=== PATIENT | male | born 1965 | race Caucasian/White ===

== ENCOUNTER → 2022-05-23 | Outpatient (CLI) | payer MEDICAID, SELFPAY ==
--- NOTE | 2022-05-23 06:06 | CT_ITS ---
STUDY: LOW DOSE CT LUNG CANCER SCREENING REASON FOR EXAM: Male, 56 years old. Rule out lung cancer. Patient smoked 1 pack per day for 45 years. RADIATION DOSAGE (If Supplied By Facility): CTDIvol = ( 2.01 ) mGy, DLP = ( 80.77 ) mGycm TECHNIQUE: No contrast was administered. Low dose technique was utilized (average mAS-38 and kVp 120). 1.25 mm axial source images with a slice interval of 1.25-mm were reconstructed in lung windows. 2.5 mm axial source images with a slice interval of 2.5-mm were reconstructed in lung windows. 5.0 mm axial source images with a slice interval of 5.0-mm were reconstructed in soft tissue windows. COMPARISON: None. NODULES: There is a 1.1 cm x 0.8 cm calcified granuloma in the lateral posterior aspect of the lingula segment of the left upper lobe. Emphysema: Hyperinflation. Emphysematous changes. Findings suggestive of a scarring in the right lung apex. Mild scarring at the right lung base. Small bulla formation in the superior medial aspect of the right upper lobe. Endobronchial lesion: None Aorta: Unremarkable CORONARY ARTERIES: Coronary artery calcification is seen. Heart: Unremarkable Pulmonary artery: Unremarkable Mediastinal nodes: Calcified left hilar lymph nodes. Calcified subcarinal lymph nodes. Other chest and abdominal findings: Loss of height of the T7 vertebrae. CT/Low Dose CT Lung Screening IMPRESSION: Lung-RADS category 2 - Continue annual screening with LDCT in 12 months. IMPORTANT NOTES FOR USE: ACR Lung-RADS Version 1.1 Assessment Categories Release Date: 2018 Category: Coded 0-4 bases on nodule(s) with highest degree of suspicion. Negative screen is defined as categories 1 and 2; a positive screen is defined as categories 3 and 4. Category 3 and 4A nodules that are unchanged on interval CT should be coded as category 2, and individuals returned to screening in 12 months. Category 4X: Category 3 or 4 nodules with additional imaging findings that increase the suspicion of lung cancer, such as spiculation, GGN that doubles in size in 1 year, enlarged lymph notes, etc. Category Modifiers: S (significant finding unrelated to lung cancer) Electronically Signed: Jeremías Lorenz MD at 13:05 EDT ,
== END | disposition home or self-care (01) ==
LOC: CT 05:58
PROVIDERS: PCP Family Medicine; Referring Provider Orthopaedic Surgery; Visit Provider Orthopaedic Surgery
DX: R68.89 Other general symptoms and signs (principal); F17.200 Nicotine dependence, unspecified, uncomplicated; I25.10 Atherosclerotic heart disease of native coronary artery without angina pectoris
CPT/HCPCS: 71271

== ENCOUNTER 2022-06-09 10:50 | Day surgery (SDC) | payer MEDICAID, SELFPAY ==
--- NOTE | 2022-06-09 | IMM_PTH ---
PATIENT: JOHN ROSS LOC: [facility] [place] U#:[id number] AGE/SX: 56/M ROOM: RE06/09/[address]: Dr. Dorita Rosa MD : 1965 BED: DIS: 06/09/2022 SPEC #: [id number] RECD: 06/13/22 13:40 STATUS: SOUDarwin REQ #: [id number] EMMA: 06/09/22 00:[address]: Dorita Rosa DEPT: IMMUNOHISTOCHEMISTRY RECD BY: Aliyah Harrington ENTERED: 06/13/22 13:42 SP TYPE: IMMUNO OTHR DR: Dr. Reilly Flores MD Tissues: Vertebra, NOS Procedures: CD20 (add) CD45 (add) CD5 (add) CD79A (add) MPO (add) P53 (add) Vimentin (add) Pankeratin (initial) S-100 (add) PHYSICIAN & INSTITUTION [facility] [id number] SPECIMEN INFORMATION: Tissue Source: Vertebral body, T7, core biopsy Clinical Info: Osteoporosis with fracture vertebra Specimen Number: [id number] CPT code: 14064, 11912 x8 METHODOLOGY: Deparaffinized sections of prefer/formalin-fixed tissue or PAP/DQ stained slides are incubated with monoclonal/polyclonal antibodies/oligonucleotide probes. Localization is made via biotin free immunoperoxidase method. Appropriate controls are performed and reacted as expected. Results on target cell population are indicated in the following table: RESULTS: ANTIBODY / CLONE RESULT AE1-3 (AE1/AE3/PCK26) negative CD5 (SP10) negative CD20 (L26) negative CD45 (RP2/18) negative CD79a (11E3) negative MPO (polyclonal) negative Vimentin (V9) negative S-100 (4C4.9) negative P53 (DO-7) negative These tests were developed and their performance characteristics determined by [facility]. They may not have been cleared or approved by the U.S. Food and Drug Administration. The FDA has determined that such clearance or approval is not necessary. The above immunohistochemical/dualISH markers are ordered and reviewed by the Pathologist. INTERPRETATION: Vertebral body, T7, core biopsy: No evidence of malignancy. AM:miles 06/14/2022
[2022-06-09 11:31] VITALS: BP 116/94; PULSE 68; RESP 16; TEMP 37.2; O2SAT 98; BMI 21.7
[2022-06-09] MEDS: Lactated Ringers 1,000 ML 15 ML IV ×2 (11:36→14:30)
--- NOTE | 2022-06-09 12:55 | BONBX_PTH ---
PATIENT: JOHN ROSS LOC: [facility] [place] U#:[id number] AGE/SX: 56/M ROOM: RE06/09/[address]: Dr. Dorita Rosa MD : 1965 BED: DIS: 06/09/2022 SPEC #: [id number] RECD: 06/12/22 11:10 STATUS: JUDAH REQ #: [id number] EMMA: 06/09/22 12:[address]: Dorita Rosa DEPT: SURGICAL PATHOLOGY RECD BY: Nadia Bhakta ENTERED: 06/12/22 13:22 SP TYPE: Bone OTHR DR: Dr. Reilly Flores MD Tissues: Vertebra, NOS Procedures: Decalcification bone/plaque Surgery Specimen Level V HEADER OPERATION: Kyphoplasty, T7 with biopsy PRE-OP DIAGNOSIS: Age-related osteoporosis with current path fracture vertebra TISSUE SUBMITTED: T7 vertebral body biopsy MICROSCOPIC DIAGNOSIS Vertebral body, T7, core biopsy: Consistent with organizing fracture callus. No evidence of malignancy. See comment. KAREN:miles 06/13/2022 COMMENT Immunohistochemistry ([id number]) supports the above diagnosis. MICROSCOPIC DESCRIPTION Slides are reviewed. GROSS DESCRIPTION Received in fixative is one container labeled with the patient's name and designated T7 vertebral body biopsy. The specimen consists of multiple elongated fragments of bone mixed with blood clot measuring in aggregate 0.5 x 0.5 x 0.1 cm. The specimen is totally submitted in one cassette after decalcification. / KAREN:miles 06/12/2022 TC:5 CPT: 59727, 37512
--- NOTE | 2022-06-09 14:05 | RAD_ITS ---
STUDY: INTRAOPERATIVE FLUOROSCOPY TECHNIQUE: The examination was performed with referring physician in attendance. Under fluoroscopic observation, fluoroscopic images were obtained. Radiologist was not present for the study. Radiologist did not perform the procedure. This dictation is for documentation of the radiation dosage only. There is no interpretation of the images. TOTAL NUMBER OF IMAGES: 1 COMPARISON: None RADIATION DOSE: 25 mGy FLUOROSCOPY TIME: 120 seconds REASON FOR EXAM: FX T7 Male, 56 years old. FINDINGS: Kyphoplasty noted. RAD/Thoracic Spine 2 Views IMPRESSION: Fluoroscopic assistance images were obtained. Dictation for documentation purposes only. Electronically Signed: Forest Meeks MD at 15:15 EDT ,
[2022-06-09 14:43] VITALS: BP 116/94; BP 150/89; PULSE 72; RESP 16; TEMP 36.6; O2SAT 98
[2022-06-09 15:00] VITALS: BP 116/94; BP 144/88; PULSE 66; RESP 16; O2SAT 98
[2022-06-09 15:15] VITALS: BP 116/94; BP 140/83; PULSE 60; RESP 16; TEMP 36.6; O2SAT 97
[2022-06-09 16:01] VITALS: BP 116/94
== END 2022-06-09 16:02 | disposition home or self-care (01) ==
LOC: SDC 10:51 → AC 10:53
PROVIDERS: PCP Family Medicine; Referring Provider Anesthesiology Pain Medicine; Visit Provider Anesthesiology Pain Medicine
PROC: (CPT 22513; principal; 2022-06-09 12:40)
DX: M80.08XA Age-related osteoporosis with current pathological fracture, vertebra(e), initial encounter for fracture (principal); X58.XXXA Exposure to other specified factors, initial encounter; F17.200 Nicotine dependence, unspecified, uncomplicated; Z79.891 Long term (current) use of opiate analgesic
CPT/HCPCS: 22513; 01941; 72070; 76000; 88307; 88311; 88341; 88342; J7120; J2405

== ENCOUNTER → 2022-07-04 | Outpatient (CLI) | payer MEDICAID, SELFPAY ==
--- NOTE | 2022-07-04 08:04 | BD_ITS ---
STUDY: DUAL ENERGY X-RAY ABSORPTIOMETRY / DXA REASON FOR EXAM: Male, 56 years old. T7 pain TECHNIQUE: Bone Mineral Density (BMD) measurements of lumbar spine and left hip were obtained. COMPARISON: None. FINDINGS: Lumbar Spine (L1-L4): g/cm2 (0.735) / T-score (-3.2) / Z-score (-2.7) Findings are suggestive of osteoporosis with a high fracture risk. Left Femur Total: g/cm2 (0.678) / T-score (-2.3) / Z-score (-1.9) Left Femoral Neck: g/cm2 (0.680) / T-score (-1.8) / Z-score (-0.9) BD/Dexa Bone Density Study IMPRESSION: The patient is considered osteoporotic as outlined below according to World Octavio Organization (WHO) criteria with a high fracture risk. Reference Information: The T-score is the number of standard deviations above or below the standard which is normal for young adults at their peak bone mineral density. The World Health Organization (WHO) interprets the T-scores as follows: Above -1 Normal bone density Between -1 and -2.5 Osteopenia Equal to / or below -2.5 Osteoporosis As a practical clinical guideline, osteopenia may be graded as follows: Mild -1 through -1.5 Moderate -1.6 through -2.0 Severe -2.1 through -2.4 The Z-score is the number of standard deviations above or below age-matched controls. A Z-score of less than -1.5 would be considered abnormal. References: 1. NIH Osteoporosis and Related Bone Diseases www osteo.org 2. International Society for Clinical Densitometry www iscd.org 3. National Osteoporosis Foundation www nof.org Electronically Signed: Jeremías Lorenz MD at 14:01 EDT ,
== END | disposition home or self-care (01) ==
LOC: OPBD 07:41
PROVIDERS: PCP Family Medicine; Visit Provider Orthopaedic Surgery
DX: M81.0 Age-related osteoporosis without current pathological fracture (principal)
CPT/HCPCS: 77080

== ENCOUNTER → 2022-08-17 | Outpatient (CLI) | payer MEDICAID, SELFPAY ==
--- NOTE | 2022-08-17 13:49 | PFTCOMP ---
COMPLETE PULMONARY FUNCTION TEST INTERPRETATION Brief HPI: Patient is a 57-year-old male, currently under the care of Dr. Ayers, who presents to [facility] for complete pulmonary function tests secondary to diagnosis of COPD. Respiratory therapist reports good effort and reproducible results. Interpretation: Forced expiration spirometry shows a mild large airways obstructive ventilatory defect with an FEV1 of 70% predicted. There is a significant bronchodilator response in FVC and FEV1 by strict ATS criteria. Spirograms are of good quality and plateau slowly, indicating slowly emptying areas of the lungs. The respiratory flow volume loop shows decreased expiratory flow rates at all lung volumes consistent with airway obstruction. Lung volumes by body plethysmography show a normal total lung capacity at 5.55 L, 86% predicted. All other lung volumes are within normal limits. Diffusion capacity by carbon monoxide is normal at 119% predicted. The airway resistance is elevated. No previous pulmonary function tests were available for review. Impression: Partially reversible mild large airways obstructive ventilatory defect with preserved lung volumes and diffusion capacity
[2022-08-22 17:07] LABS: QNTFERON TB Mitogen Value > 10.00 IU/mL (.); QNTFERON TB Nil Value 0.43 IU/mL (.); QNTFERON TB1+ Ag Value 0.41 IU/mL (.); QNTFERON TB2+ Ag Value 0.25 IU/mL (.)
[2022-08-24 10:22] LABS: QNTIFERON TB Positive Criteria Negative (Negative)
== END | disposition home or self-care (01) ==
PROVIDERS: PCP Family Medicine; Referring Provider Internal Medicine; Visit Provider Internal Medicine
DX: R91.1 Solitary pulmonary nodule (principal); J44.9 Chronic obstructive pulmonary disease, unspecified
CPT/HCPCS: 36415; 86480; 94060; 94726; 94729

== ENCOUNTER → 2022-10-03 | Outpatient (CLI) | payer MEDICAID, SELFPAY ==
[2022-10-03 16:23] LABS: Absolute Lymphocyte Count 4.78 X10^3/uL (0.83-4.51); Absolute Neutrophil Count 3.1 X10^3/uL (2.0-7.7); Eosinophil# 0.55 X10^3/uL; Eosinophils% 5.7 % (0-5); Hematocrit 47.1 % (40-54); Hemoglobin 15.3 g/dL (13.0-16.5); Lymphocyte # 4.78 X10^3/ul (0.83-4.51); Lymphocyte % 49.9 % (19-41); Mean Corp Hgb Conc 32.5 g/dL (32-36); Mean Corpuscular Hgb 30.5 pg (27.0-32.0); Monocyte# 1.02 X10^3/uL; Monocyte% 10.6 % (0-10); NRBC Flagged by Analyzer 0 % (0-5); Neutrophil # 3.07 X10^3/uL (2.7-7.7); Neutrophil % 32.2 % (47-70); Platelet Count 260 K/mm3 (150-450); RBC Distribution Width CV 14.6 % (11.6-14.6); RBC Distribution Width SD 50.3 fl (35.1-43.9); Red Blood Count 5.01 M/mm3 (4.6-6.2); White Blood Count 9.6 K/mm3 (4.4-11.0)
[2022-10-03 17:04] LABS: Vitamin D,25 Hydroxy 22.8 ng/mL
[2022-10-03 17:14] LABS: ALB/GLOB Ratio 0.9 RATIO (0.9-2.4); AST(SGOT) 60 U/L (15-37); Alanine Aminotransfer ALT/SGPT 108 U/L (16-61); Albumin, Serum 3.5 g/dL (3.2-5.0); Alkaline Phosphatase 73 U/L (45-117); Anion Gap 4 (5-15); BUN 20 mg/dL (7-18); BUN/Creat Ratio 23.3 RATIO (10-20); Calcium,Total 8.9 mg/dL (8.5-10.1); Chloride 108 mmol/L (98-107); Creatinine, Serum 0.86 mg/dL (0.70-1.30); EST Glomerular Filtration Rate 97 mL/min (>60); Est Glom Filt Rate - Afr Amer 118 mL/min (>60); Follicle Stimulating Hormone 4.4 mIU/mL; Glucose 91 mg/dL (74-106); Luteinizing Hormone 4.4 mIU/mL; Potassium 4.2 mmol/L (3.5-5.1); Protein, Total 7.5 g/dL (6.4-8.2); Sodium Level 141 mmol/L (136-145); T4 Free Direct 0.81 ng/dL (0.76-1.46); Thyroid Stim Hormone (TSH) 3.61 uIU/mL (0.358-3.74)
[2022-10-04 08:28] LABS: PTHIN 36.3 pg/mL (18.4-80.1)
[2022-10-09 12:08] LABS: Testosterone, Free 4.94 ng/dL (5.00-21.00)
[2022-10-09 13:28] LABS: Testosterone, % Free 1.17 % (1.50-4.20); Testosterone, Total 422 ng/dL (264-916)
== END | disposition home or self-care (01) ==
PROVIDERS: PCP Family Medicine; Visit Provider Internal Medicine Endocrinology, Diabetes & Metabolism
DX: M81.0 Age-related osteoporosis without current pathological fracture (principal); S22.069A Unspecified fracture of T7-T8 vertebra, initial encounter for closed fracture; E55.9 Vitamin D deficiency, unspecified
CPT/HCPCS: 36415; 80053; 82306; 83001; 83002; 83970; 84146; 84402; 84403; 84439; 84443; 85025

== ENCOUNTER → 2022-11-09 | Outpatient (CLI) | payer MEDICAID, SELFPAY ==
--- NOTE | 2022-11-09 12:52 | PFTCOMP ---
COMPLETE PULMONARY FUNCTION TEST INTERPRETATION Brief HPI: Patient is a 57-year-old male, currently under the care of Dr. Ayers, who presents to [facility] for complete pulmonary function tests secondary to diagnosis of COPD. Respiratory therapist reports good effort and reproducible results. Interpretation: Forced expiration spirometry shows a mild large airways obstructive ventilatory defect with an FEV1 of 79% predicted. There is a significant bronchodilator response in FEV1 by strict ATS criteria. Spirograms are of good quality and plateau slowly, indicating slowly emptying areas of the lungs. The respiratory flow volume loop shows decreased expiratory flow rates at high lung volumes consistent with small airways obstruction. Lung volumes by body plethysmography show a normal total lung capacity at 5.68 L, 85% predicted. All other lung volumes are within normal limits. Diffusion capacity by carbon monoxide is normal at 111% predicted. The airway resistance is elevated. Compared to previous pulmonary function tests from 08/17/2022, there is been a significant improvement in FVC and FEV1 by 17% and 22% respectively. Impression: Partially reversible mild large airways obstructive ventilatory defect with preserved diffusion capacity and some improvement compared to previous study.
== END | disposition home or self-care (01) ==
LOC: PSN 09:10
PROVIDERS: PCP Family Medicine; Visit Provider Internal Medicine
DX: J44.9 Chronic obstructive pulmonary disease, unspecified (principal)
CPT/HCPCS: 94060

== ENCOUNTER → 2022-11-27 | Outpatient (CLI) | payer MEDICAID, SELFPAY ==
--- NOTE | 2022-11-27 13:00 | STRESSREP ---
Stress Test Report Exercise stress test. 57-year-old man with a history of chest pain Stress protocol: Resting EKG demonstrates normal sinus rhythm with a rate of 64 bpm resting blood pressure is 122/80 mmHg. The patient exercised according to the regular Michael protocol for a total duration of 6 minutes attaining a maximum heart rate of 125 bpm which was 77% of maximum predicted heart rate; the maximum workload was 7 metabolic equivalents. At rest there were no ST or T wave changes noted to suggest ischemia and at peak exercise upsloping ST changes only were noted which did not meet the criteria for ischemia. No clinical angina was noted the test was terminated due to the target heart rate being achieved/fatigue. The peak blood pressure was 164/70 mmHg. Rate-pressure product was 20,500. Conclusion: Exercise stress test with no EKG changes for ischemia at a moderate workload. Good functional aerobic capacity.
== END | disposition home or self-care (01) ==
LOC: CVS 10:26
PROVIDERS: PCP Family Medicine; Visit Provider Internal Medicine
DX: J44.9 Chronic obstructive pulmonary disease, unspecified (principal); R07.89 Other chest pain
CPT/HCPCS: 93017

== ENCOUNTER → 2023-02-08 | Outpatient (CLI) | payer MEDICAID, SELFPAY ==
--- NOTE | 2023-02-08 11:20 | RAD_ITS ---
STUDY: X-RAY - LUMBAR SPINE REASON FOR EXAM: Male, 57 years old. Osteoporosis. TECHNIQUE: 2 view(s) of the lumbar spine were obtained. COMPARISON: None FINDINGS: Normal lumbar lordosis. There is no substantial scoliosis. There is a normal alignment of the vertebrae. Normal vertebral bodies and endplates. Normal disc space heights. There is no evidence of acute fracture or loss of vertebral axial height. There is atherosclerotic calcification of the abdominal aorta without a demonstrated aneurysm. RAD/Lumbar Spine 2 or 3 Views IMPRESSION: Normal x-ray examination of the lumbar spine. Electronically Signed: Tico Chaney DO at 22:48 EDT ,
--- NOTE | 2023-02-08 11:20 | RAD_ITS ---
STUDY: X-RAY - THORACIC SPINE REASON FOR EXAM: Male, 57 years old. Osteoporosis. TECHNIQUE: 3 view(s) of the thoracic spine were obtained. COMPARISON: June 21, 2022 FINDINGS: Normal kyphosis of the thoracic spine. There is no substantial scoliosis. Adenosine is vertebral augmentation of T6 with mild anterior wedging. There is endplate spondylosis and disc space narrowing at multiple levels unchanged from prior exam. No acute fracture or loss of vertebral axial height. The soft tissue structures are unremarkable. RAD/Thoracic Spine 3 Views IMPRESSION: No acute abnormality or change from June 21, 2022. Electronically Signed: Tico Chaney DO at 22:50 EDT ,
== END | disposition home or self-care (01) ==
LOC: RAD 11:13
PROVIDERS: PCP Family Medicine; Referring Provider Anesthesiology Pain Medicine; Visit Provider Anesthesiology Pain Medicine
DX: M80.08XA Age-related osteoporosis with current pathological fracture, vertebra(e), initial encounter for fracture (principal)
CPT/HCPCS: 72072; 72100

== ENCOUNTER 2023-05-21 07:32 | Outpatient (CLI) | payer MEDICAID, SELFPAY ==
[2023-05-21 07:57] VITALS: BP 137/70; PULSE 68; RESP 16; TEMP 36.7; O2SAT 98
[2023-05-21] MEDS: DENOSUMAB 60 MG/ML SC (08:00)
== END 2023-05-21 07:33 | disposition home or self-care (01) ==
LOC: MEDOUTP 07:33
PROVIDERS: PCP Family Medicine; Referring Provider Nurse Practitioner Family; Visit Provider Nurse Practitioner Family
DX: M81.0 Age-related osteoporosis without current pathological fracture (principal)
CPT/HCPCS: 96372; J0897

== ENCOUNTER → 2023-05-25 | Outpatient (CLI) | payer MEDICAID, SELFPAY ==
--- NOTE | 2023-05-25 06:21 | CT_ITS ---
STUDY: LOW DOSE CT LUNG CANCER SCREENING REASON FOR EXAM: Male, 57 years old. Lung nodule L lingula followup. Patient smoked 2 packs per day for 45 years. RADIATION DOSAGE (If Supplied By Facility): CTDIvol = ( 2.01 ) mGy, DLP = ( 69.47 ) mGycm TECHNIQUE: No contrast was administered. Low dose technique was utilized (average mAS-38 and kVp 120). 1.25 mm axial source images with a slice interval of 1.25-mm were reconstructed in lung windows. 2.5 mm axial source images with a slice interval of 2.5-mm were reconstructed in lung windows. 5.0 mm axial source images with a slice interval of 5.0-mm were reconstructed in soft tissue windows. COMPARISON: Comparison is made with prior study dated May 23, 2022. NODULES: Stable 1.1 cm x 0.8 cm calcified granuloma in the lateral posterior aspect of the lingular segment of the left upper lobe. There is a new 8.3 mm nodule in the upper lateral aspect of the right upper lobe axial axial image #53 and coronal image #157. Correlation with a PET scan is recommended. Emphysema: Hyperinflation. Emphysematous changes. Stable scarring in the right lung apex. Scarring in the left lung apex to a lesser degree. Endobronchial lesion: None Aorta: Unremarkable CORONARY ARTERIES: Coronary artery calcification is seen. Heart: Unremarkable Pulmonary artery: Unremarkable Mediastinal nodes: Calcified left hilar lymph nodes and subcarinal lymph nodes. Other chest and abdominal findings: CT/Low Dose CT Lung Screening IMPRESSION: Lung-RADS category 4B - Chest CT with or without contrast, PET/CT and/or tissue sampling can be obtained depending on the probability of malignancy and comorbidities. IMPORTANT NOTES FOR USE: ACR Lung-RADS Version 1.1 Assessment Categories Release Date: 2018 Category: Coded 0-4 bases on nodule(s) with highest degree of suspicion. Negative screen is defined as categories 1 and 2; a positive screen is defined as categories 3 and 4. Category 3 and 4A nodules that are unchanged on interval CT should be coded as category 2, and individuals returned to screening in 12 months. Category 4X: Category 3 or 4 nodules with additional imaging findings that increase the suspicion of lung cancer, such as spiculation, GGN that doubles in size in 1 year, enlarged lymph notes, etc. Category Modifiers: S (significant finding unrelated to lung cancer) Electronically Signed: Jeremías Lorenz MD at 9:18 EDT ,
== END | disposition home or self-care (01) ==
LOC: CT 06:18
PROVIDERS: PCP Family Medicine; Referring Provider Internal Medicine; Visit Provider Internal Medicine
DX: R91.1 Solitary pulmonary nodule (principal)
CPT/HCPCS: 71271

== ENCOUNTER → 2023-07-31 | Outpatient (CLI) | payer MEDICAID, SELFPAY ==
--- NOTE | 2023-07-31 09:00 | PET_ITS ---
EXAMINATION: FDG PET-CT INDICATIONS: A 57-year-old male with a history of pulmonary nodularity. COMPARISON EXAMINATION: CT of the chest report dated 05/25/23. INDEX LESION SIZE SUV INTERPRETATION Right upper lung field right upper lobe 41.6 mm 0.9 Quantitative criteria for viable neoplasm are not fulfilled, sequential radiologic investigation recommended. TECHNIQUE: Following the intravenous administration of 14.78 mCi of F-18 deoxyglucose via the left antecubital fossa, multiplanar image acquisitions of the head, neck, chest, abdomen and pelvis to level of mid-thigh, lower extremities obtained at one hour post radiopharmaceutical administration contemporaneously interpreted with the current CT of the head, neck, chest, abdomen and pelvis to level of mid-thigh, lower extremities dated 07/31/[address] of the chest report dated 05/25/23 reveal: SERUM GLUCOSE LEVEL: 74 mg/dl. HEIGHT: 69 inches. WEIGHT: 156 lbs. FINDINGS: Head/Neck: There is no evidence of abnormal increased glucose metabolism in the pharyngeal mucosal space, parapharyngeal space, bilateral-lateral and anterior neck, hypopharynx and distribution of the laryngeal structures. The visualized portion of the cerebral cortical-subcortical structures demonstrate symmetric and preserved glucose metabolism. CHEST: Facilitated FDG concentration is manifest in the right upper lateral lung zone, right upper lobe. The calculated maximum standard uptake value is 0.9. Increased radiopharmaceutical is noted in the descending thoracic aorta commensurate with activated leukocytes associated with atherosclerotic plaque formation. Pertinent chest CT findings are as follows. There is atherosclerotic calcification defined in the thoracic aorta without evidence of dilatation-aneurysm formation. Coronary arterial calcification is observed. Paraseptal and central lobular emphysematous changes are defined in the bilateral upper lung zones. The maximum axial diameter of the ascending thoracic aorta is 41.6 mm. Mediastinal and thoracic perihilar calcified soft tissue demonstrates no evidence of increased FDG concentration. A calcified density demonstrates in the left mid lateral lung zone anterior to the fissure demonstrates no evidence of increased tracer uptake. Abdomen/Pelvis: Normal physiologic distribution of the radiopharmaceutical is apparent in the hepatic (3.2) and splenic parenchyma, both renal units, bladder and visualized intestinal tract. Diffuse radiopharmaceutical concentration is noted in all four quadrants of the abdomen and pelvis. Abdomen and pelvis CT findings are as follows. Calcification is defined within the base of the prostate gland to the right and left of midline. Bilateral inguinal soft tissue densities with right and left inguinal soft tissue densities with fatty hilus are ametabolic. Calcified phlebolith formation is noted in the bilateral lower hemipelvis. There is atherosclerotic calcification defined in the abdominal aorta without evidence of dilatation-aneurysm formation. Abdominal-pelvic arterial calcification is defined. Skeletal: Degenerative changes are noted in the cervical, thoracic and lumbar spine. An apparent compression deformity is noted at the seventh thoracic vertebra. PET/PET/CT Tumor Base -Thigh Init IMPRESSION: 1. NEGATIVE EXAMINATION. There is no definitive quantitative scintigraphic evidence of viable neoplasm. 2. Enhanced tracer uptake noted in the right upper lung field, right upper lobe does not fulfill quantitative criteria for malignant transformation. (Melissa et al, Journal of Nuclear Medicine, 32:1, 1990). 3. Anatomic stability may be ensured in the bilateral hemithorax pulmonary parenchyma with repeat CT of the thorax in 6 months. (Kasey, Seminars in Thoracic and Cardiovascular Surgery 14:292, 2002). Electronic Signature David Blackmon D.O. Accurate Quantification of SUVs for this report are calculated using the exclusive [employer], (U.S. Patent No. [phone] [id number] [phone] [id number] [phone] [place] patent [phone] [id number] [phone] ). Standardization and correction of the FDG SUV metric exclusively available with [employer] intellectual property, allow for vendor non-specific objective quantitative sequential FDG PET-CT comparison and otherwise unobtainable optimization of the sensitivity and specificity of the examination. [email or web address] Electronically Signed: David Blackmon DO at 9:01 EST ,
== END | disposition home or self-care (01) ==
LOC: ONC 07:40
PROVIDERS: PCP Family Medicine; Referring Provider Nurse Practitioner Acute Care; Visit Provider Nurse Practitioner Acute Care
DX: R91.1 Solitary pulmonary nodule (principal)
CPT/HCPCS: 78815; A9552

== ENCOUNTER → 2023-11-01 | Outpatient (CLI) | payer MEDICARE, MEDICAID, SELFPAY ==
--- NOTE | 2023-11-01 06:39 | CT_ITS ---
STUDY: CT CHEST WITHOUT CONTRAST REASON FOR EXAM: Male, 58 years old. Follow up PET- Nodule. Current smoker. Patient smoked 2 packs per day for 46 years. RADIATION DOSAGE (If Supplied By Facility): CTDIvol = ( 9.34 ) mGy, DLP = ( 347.94 ) mGycm TECHNIQUE: Transaxial imaging was performed without the administration of intravenous contrast material. Multiplanar coronal and sagittal images were reformatted. Individualized dose optimization techniques were used for this CT. COMPARISON: Comparison is made with prior examination of May 25, 2023. FINDINGS: CHEST The previously seen 8.3 mm nodule in the upper lateral aspect of the right upper lobe has decreased in size. It presently measures 5.8 mm. Hyperinflation and mild degree of emphysematous changes. Stable scarring at the lung bases. There is a 9 mm calcified granuloma in the peripheral aspect of the left upper lobe. Stable linear scarring in the right lung apex. There is no demonstrated pleural abnormality. There are calcifications of the coronary arteries. Calcified subcarinal lymph nodes. Calcified left hilar lymph nodes. Normal unenhanced pulmonary arteries. Dilatation of the root of the ascending aorta measuring 41.1 mm. There are degenerative changes of the thoracic spine. There is no demonstrated abnormality of the visualized upper abdomen. CT/Chest without Contrast IMPRESSION: Interval decrease in size of the previously seen nodule in the lateral aspect of the right upper lobe presently measures 5.8 mm. Dilatation of the root of the ascending thoracic aorta. Electronically Signed: Jeremías Lorenz MD at 9:03 EST ,
--- OUTSIDE RECORDS SUMMARY | 2023-11-01 06:43 | XMS RPT_ITS | CCD ---
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 partial-thickness bursal-sided tearing of the distal supraspinatus towards the insertion measuring approximately 7 mm in AP and transverse dimensions. 2. The rotator cuff is otherwise intact. 3. Superior positioning of the distal clavicle is consistent with a prior AC joint separation without adjacent soft tissue edema. Resorption of the distal clavicle may also relate to the prior trauma. 4. Mild degenerative change involves the glenohumeral joint with low-grade articular cartilage lossand mild joint space narrowing. 5. A small amount of subacromial fluid suggests mild bursitis. Assessment/Plan: After examination and reviewing of the patient MRI images, we discussed continued conservative treatments and also surgical intervention. At this time he wants to move forward with the rotator cuff repair. I did explain that he would need to have outpatient physical therapy prior to the surgery. He will also need to stop smoking prior to the surgery. I did offer and he accepted nicotine patches for smoking cessation. I informed the patient that I would ask Dr. Churchill about the clavicle and what could be done when he has his rotator cuff repaired. I did explain that the patient would have a pre-operative appointment with Dr. Churchill prior to his surgery and any further questions or concerns would be addressed at that time. The patient verbalizes understanding and is in agreement with the treatment plan. I would be happy to see him as needed prior to his surgery. documented in this encounter* Jin Barragan, PT - 03/19/2020 10:[address] [facility] Evaluation Today's Date 03/19/2020 Patient Name: John Mayers Date of : 1965 Case Name: R RC pathology Functional Diagnosis: 1. Tear of right rotator cuff, unspecified tear extent, unspecified whether traumatic Clinical Information: Subjective Referring Diagnosis: R rotator cuff pathology History of Present Illness Chief Complaint/ Mechanism of Injury: Pt reports that he injured this shoulder 7-8 yrs. shoulder chasing kids around - tripped on stump and fell on the arm. 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 Over time the pain got so bad that he can't complete his job. Pt reports that he's here because he has to be for insurance purposes - Dr Churchill is going to be doing surgery. Pt describes possible reverse total shoulder Previous Imaging: MRI (RC tendinopathy / small tear) Status: worsening Pain Scale: Average Pain: 3/10 Pain at highest: 10/10 Functional Status Functional Limitations: limited mobility and recent decline in level of ADL Premorbid Functional Level: Patient reported Daily activity scale: active Prior level of function: active Sleep Assessment Sleep disturbance: Sleep Disturbance Red Flags: None Barriers to Care: None Fall risk screening Fallen 2 or more times in the last 12 months: No Injured as a result of a fall in the last 12 months: No Personal Goals: Pt would like to prepare himself for surgery. If therapy helps that would be great Social History Jehovah'S Witness, social, or cultural considerations to be made aware of before starting treatment: No Shoulder Right Shoulder Tenderness Right: posterior rotator cuff, greater tubercle. Range of Motion: Flexion: Active: 110 Abduction: Active: 90 IR 0 deg.: ROM Right Passive IR 0: WNL. ER 0 deg.: ROM Right Passive ER 0: WNL.Right ROM: Pt reports moments of rolling of shoulder during PROM. Severe pain when this happens, possible instability. Muscle Strength: IR: 3 (pain) ER: 3+ (pain) Additional Comments: Significant muscle atrophy noted at both supraspinatus and infraspinatus fossa Treatments: Physical Therapy Exercise Log - 03/19/20 5059 OTHER Notes Supervising PT Jin Arana Vitals R RC pathology Therapeutic Exercise (52693) Intervention Focus on self stretching / PROM (general gentle mobility) - no manual interventions secondary to reports of instability Parameters Deltoid strengthening, RC activation - IR important Intervention postural stretching / scap stabilizer strengthening as tolerated PT Treatment Times Self Care Total Time 10 Direct Treatment Time 10 Total Treatment Time 38 Treatment Plan: Frequency of Visits: twice per week Duration: 4-6 weeks Interventions: Therapeutic Exercise, Neuromuscular Re-Education, Manual Therapy, Therapeutic/ Functional Activities and Hot/Cold Pack Rehab Potential: poor Goals: Physical Therapy Ortho Goals: IMPAIRMENT: Patient will demonstrate improved postural awareness in PT sessions to facilitate mechanical alignment and function in 6 weeks. IMPAIRMENT: Improve pain from 3-10/10 to 2-6/10 during ADLs / self care in 6 weeks IMPAIRMENT: Improve MMT of Right Shoulder IR ER from 3/5: 3+/5 to 3+/5: 4-/5 in 6 weeks IMPAIRMENT: Improve AROM of Right Shoulder Flexion from 110 degrees to 125 degrees in 6 weeks. OTHER: Patient will be able to properly demonstrate independence with HEP in 2 weeks. IE date: 03/19/2020 Progress report due: 04/30/2020 Recert due: visit # 12 Patient Education provided: anatomy, discussion about surgical procedures Clinical Impression: CPT Code 48675 Low 11687 Moderate 38865 High History 0 1-2 3+ Comorbidities: chronic pain, prior surgical history and smoking, Personal factors: chronicity or severity of the current condition Examination of body systems (elements of body structures & functions, activity limitations, and/or participation restrictions) 1-2 elements 3+ elements 4+ elements See below clinical impression Clinical Presentation Stable Evolving Unstable As evidenced by pt report of overall worsening of symtpoms over time Decision Making Low (FOTO >/= 69) Moderate (FOTO 34 - 68) High (FOTO </= 33) None taken (prehab) Pt is a 54 y.o. male who presents to PT services with c/o R shoulder pain with diagnosis of rotatorcuff tear. Pt reports that physician is anticipating surgical intervention need. Upon assessment, pt has been found with the following impairments: impaired posture, decreased ROM, decreased strengthand pain. 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 The pt would benefit from skilled PT services focused on the abovelisted impairments and limitations in order to safely progress pt to their desired level of function. Pt to be discharged from OP PT services if/when goals are met, if they fail to make progress with conservative management in PT, if their level of progress plateaus, or if they do not maintain compliance with attendance or HEP. At this time, it is my clinical judgment that services are medically necessary. Due to patient's level of acuity requiring ongoing rehabilitation in order to prevent decline in function / mitigate detrimental prognosis / maximze safety it is recommended that this patient continue with rehab services in light of current pandemic. Patient was informed of recommended course of action / educated regarding risk v benefit and would like to: continue with rehab services at this time. Jin Barragan PT STATE LICENSE, [id number] documented in this encounter* Yarelis Santacruz, ORE ROASTER - 03/23/2020 8:[address] [facility] DAILY TREATMENT NOTE Today's Date 03/23/2020 Patient Name: John Mayers Date of : 1965 Current Visit #: 2 Authorized Visits: 70 Case Name: R RC pathology History: Pre-Treatment Pain Scale: 3 Symptoms: 2nd visit Functional Diagnosis: 1. Tear of right rotator cuff, unspecified tear extent, unspecified whether traumatic Clinical Information: Subjective: Pt reports he has surgery scheduled for 05/05/2020. He states after his evaluation he had increased pain. At rest his pain isn't really bad but with certain movements it feels like it's rolling and wants to pop sometimes . Objective Initiated exercise program with visual and verbal cues for proper form and education due to first visit since IE. Pt performed exercises per log for increased shoulder mobility and gentle strengthening in pain free range. Treatments: Physical Therapy Exercise Log - 03/23/20 0828 OTHER Precautions/Contraindications [phone] Notes Supervising PT Jin 12 Vitals R RC pathology Therapeutic Exercise (68313) Intervention Forward bow stretch, 15 x4 Parameters table slides, (fwd/scap) 5 x10 Intervention scap squeezes, 5 x10 Parameters manual isometrics, (flex/ER/IR/ABD) 5 x10 Intervention blue weighted ball on table, CW/CCW x20 each Parameters prone rows/ext, x10 each PT Treatment Times Therex Total Time 40 Direct Treatment Time 40 Total Treatment Time 42 Goals: Physical Therapy Ortho Goals: IMPAIRMENT: Patient will demonstrate improved postural awareness in PT sessions to facilitate mechanical alignment and function in 6 weeks. IMPAIRMENT: Improve pain from 3-10/10 to 2-6/10 during ADLs / self care in 6 weeks IMPAIRMENT: Improve MMT of Right Shoulder IR ER from 3/5: 3+/5 to 3+/5: 4-/5 in 6 weeks IMPAIRMENT: Improve AROM of Right Shoulder Flexion from 110 degrees to 125 degrees in 6 weeks. OTHER: Patient will be able to properly demonstrate independence with HEP in 2 weeks. IE date: 03/19/2020 Progress report due: 04/30/2020 Recert due: visit # 12 Patient Education: Quality of movement, Written HEP and HEP Adherence with patient demonstrated understanding, verbalized understanding and written information provided . Post-Treatment Pain Scale: 3 Assessment: Patient had an expected response to treatment. Pt reports the popping and rolling with prone rows this visit. Pt presents with increased strength ER with manual isos compared to other planes with pt stating he feels he is strongest in that plane. Decreased mobility with prone ext but no pain reported. Some increased soreness post session. Skilled Intervention demonstrated by modifications of treatment per exercise log including increased intensity, increased mobility, increased volume and assessment of patient's response and safety interventions per exercise log. Progress towards goals as expected. Plan for Next Visit: Treatment Visit with focus on increased shoulder strength/stability and mobility Yarelis Santacruz PTA STATE LICENSE, [id number] documented in this encounter* Jin Barragan, PT - 03/25/2020 9:[address] [facility] DAILY TREATMENT NOTE Today's Date 03/25/2020 Patient Name: John Mayers Date of : 1965 Current Visit #: 3 Authorized Visits: 70 Case Name: Lissette pathology History: Pre-Treatment Pain Scale: 3 Symptoms: No change Functional Diagnosis: 1. Tear of right rotator cuff, unspecified tear extent, unspecified whether traumatic Clinical Information: Subjective: Pt reports that his shoulder is no worse. Reports that he's having the same amount of pain though. Objective - good tolerance to cues to increase pressure WB with CW / CCW circles on table. Pt experienced 1 instance of rolling feeling and tough time getting it back in. [place] better after additional set of shoulder in 90 deg flexion Treatments: Physical Therapy Exercise Log - 03/25/20 0915 OTHER Notes Supervising PT Jin 12 Vitals R RC pathology Therapeutic Exercise (98902) Intervention Forward bow stretch, 15 x5 Parameters table slides, (fwd/scap) active x 30 with yellow austrian ball Intervention scap squeezes, 5 x10 Parameters manual isometrics, (flex/ER/IR/ABD) 5 x10 Intervention blue weighted ball on table, CW/CCW 3x20 each (cues to promote increased WB) Parameters prone rows/ext, 2x10 each Intervention Manual light alternating stabs with shoulder in 90 deg flexion: 20 x 3 Goals: Physical Therapy Ortho Goals: IMPAIRMENT: Patient will demonstrate improved postural awareness in PT sessions to facilitate mechanical alignment and function in 6 weeks. IMPAIRMENT: Improve pain from 3-10/10 to 2-6/10 during ADLs / self care in 6 weeks IMPAIRMENT: Improve MMT of Right Shoulder IR ER from 3/5: 3+/5 to 3+/5: 4-/5 in 6 weeks IMPAIRMENT: Improve AROM of Right Shoulder Flexion from 110 degrees to 125 degrees in 6 weeks. OTHER: Patient will be able to properly demonstrate independence with HEP in 2 weeks. IE date: 03/19/2020 Progress report due: 04/30/2020 Recert due: visit # 12 Patient Education: Quality of movement, Verbal HEP, HEP Adherence, Diagnosis and recovery specific education and Pain Management with patient verbalized understanding. Post-Treatment Pain Scale: 3 Assessment: Patient had an expected response to treatment. Skilled Intervention demonstrated by modifications of treatment per exercise log including plane progressions, increased mobility and assessment of patient's response and safety interventions per exercise log. Progress towards goals as expected. Plan for Next Visit: continue, NV attempt HHD isometric vs plinth Jin Barragan, MARILUZ STATE LICENSE, [id number] documented in this encounter* Pauly Souza LPN - 04/19/2020 11:34 AM EDT had an elevated WBC of 12.38 w his pre op testing. I did speak w him today and he felt fine, no fever, chills, head or chest congestion. Per Dr Churchill will have another CBC drawn on 04-26-20 at [facility]. documented in this encounter* Sofía Churchill MD - 05/21/2020 8:04 AM EDT Dictation on: 05/21/2020 8:05 AM by: SOFÍA CHURCHILL [[id number]] documented in this encounter* Sofía Churchill MD - 06/18/2020 5:55 PM EDT Dictation on: 06/18/2020 5:56 PM by: SOFÍA CHURCHILL [[id number]] documented in this encounter* Jin Barragan, PT - 04/07/2020 9:[address] [facility] DAILY TREATMENT NOTE Today's Date 04/07/2020 Patient Name: John Mayers Date of : 1965 Current Visit #: 4 Authorized Visits: 70 Case Name: R RC pathology History: Pre-Treatment Pain Scale: 4 Symptoms: No change Functional Diagnosis: 1. Tear of right rotator cuff, unspecified tear extent, unspecified whether traumatic Clinical Information: Subjective: Pt reports that he got his surgery scheduled. Reports that he's been consistent with his exercises at home. Has also been swimming - that seems to make his shoulder feel more stable than when he does certain motions outside of the pool. Pt was under impression that he was having a reverse total shoulder replacement. Within [facility] it's listed as an arthroscopic RC repair. I advised pt to phone MD office to clarify. Objective Treatments: Physical Therapy Exercise Log - 04/07/20 3536 OTHER Notes Supervising PT Jin Yasmeen Vitals R RC pathology Therapeutic Exercise ([id number]) Parameters HEP update to include isometrics vs wall: reviewed HEP, advised pt to call MD office to clarify surgical intervention Goals: Physical Therapy Ortho Goals: IMPAIRMENT: Patient will demonstrate improved postural awareness in PT sessions to facilitate mechanical alignment and function in 6 weeks. MET IMPAIRMENT: Improve pain from 3-10/10 to 2-6/10 during ADLs / self care in 6 weeks NOT MET IMPAIRMENT: Improve MMT of Right Shoulder IR ER from 3/5: 3+/5 to 3+/5: 4-/5 in 6 weeks NOT MET IMPAIRMENT: Improve AROM of Right Shoulder Flexion from 110 degrees to 125 degrees in 6 weeks. NOT MET OTHER: Patient will be able to properly demonstrate independence with HEP in 2 weeks. MET Patient Education: Quality of movement, Written HEP, Verbal HEP, HEP Modification, HEP Adherence, Diagnosis and recovery specific education and Pain Management with patient demonstrated understanding, verbalized understanding and written information provided . Post-Treatment Pain Scale: 4 Skilled Intervention demonstrated by modifications of treatment per exercise log including assessment of patient's response and safety interventions per exercise log. Progress towards goals as expected. Pt has demonstrated no progress towards set goals. Pt is independent with his HEP and his surgery is scheduled for 05/05/2020. Recommend DC at this time Jin Barragan PT STATE LICENSE, [id number] documented in this encounter Assessments Diagnosis Acute pansinusitis, recurrence not specified- Primary Acute bronchitis, unspecified organism Smoker Tobacco use disorder Diagnosis RUQ pain Abdominal pain, right upper quadrant History of ventral hernia repair Right upper quadrant abdominal pain Diagnosis Acute pain of right shoulder Diagnosis Separation of right acromioclavicular joint, initial encounter Chronic right shoulder pain Pain in joint, shoulder region Tear of right rotator cuff, unspecified tear extent, unspecified whether traumatic Diagnosis Tear of right rotator cuff, unspecified tear extent, unspecified whether traumatic Diagnosis S/P arthroscopy of right shoulder- Primary Tear of right rotator cuff, unspecified tear extent, unspecified whether traumatic Separation of right acromioclavicular joint, initial encounter Diagnosis S/P right rotator cuff repair- Primary Diagnosis S/P right rotator cuff repair- Primary Diagnosis Tear of right rotator cuff, unspecified tear extent, unspecified whether traumatic Separation of right acromioclavicular joint, initial encounter Diagnosis Tear of right rotator cuff, unspecified tear extent, unspecified whether traumatic Diagnosis Tear of right rotator cuff Separation of right acromioclavicular joint Diagnosis Tear of right rotator cuff, unspecified tear extent, unspecified whether traumatic Discharge Instructions * Instructions* Ana Ann CNP - 01/26/2020 Follow-up with Dr. Churchill as directed. If any new or worsening symptoms may return to the emergency department. Utilize ice 20 minutes on 20 minutes off for inflammation. * Attachments The following attachments cannot be sent through [facility]. * Shoulder Pain (Qatari) documented in this encounter* Discharge Instr - Other Orders* Lina Garcia, RN - 05/05/2020 9:16 AM EDT GENERAL POST-OPERATIVE PATIENT INSTRUCTIONS ANESTHESIA PRECAUTIONS: A responsible adult must stay with you for at least 24 hours after surgery. You may feel light headed,, dizzy, or nauseated during this time. Do not operate a vehicle (car, bike, motorcycle, machine fancy stitcher) machinery or power tools. Do not make any important decisions or drink any alcoholic beverages for 24 hours. Children should remain quiet today. No riding of bicycles, motorcycles, skateboards, playing on swings etc. Drink plenty of fluids today. Eat light, small, frequent meals today. Resume regular diet tomorrow. FOLLOW-UP: Please make an appointment with your physician for follow-up. Call your physician immediately if you have any fevers greater than 101, drainage from your wound that is not clear or looks infected, persistent bleeding, increasing abdominal pain, problems urinating, or persistent nausea/vomiting. DIET: You may eat any foods that you can tolerate. It is a good idea to eat a high fiber diet and take in plenty of fluids to prevent constipation. If you do become constipated you may want to take amild laxative or take ducolax tablets on a daily basis until your bowel habits are regular. Constipation can be very uncomfortable, along with straining, after recent surgery. ACTIVITY: You are encouraged to cough and deep breathe or use your incentive spirometer if you weregiven one, every 15-30 minutes when awake. This will help prevent respiratory complications and lowgrade fevers post-operatively if you had a general anesthetic. You are encouraged to walk and engage in light activity for the next two weeks. MEDICATIONS: Try to take narcotic medications and anti-inflammatory medications, such as ibuprofen,naprosyn, etc., with food. This will minimize stomach upset from the medication. Should you developnausea and vomiting from the pain medication, or develop a rash, please discontinue the medication and contact your physician. You should not drive, make important decisions, or operate machinery when taking narcotic pain medication. Do not take tylenol or tylenol products with narcotic medications. QUESTIONS: Please feel free to call your physician or the hospital testboard operator if you have any questions, and they will be glad to assist you. documented in this encounter Reason for Referral Status Reason Specialty Diagnoses / Procedures Referred By Contact Referred To Contact Authorized Rehabilitation Diagnoses Tear of right rotator cuff, unspecified tear extent, unspecified whether traumatic Coreen Bedoya, TUBE BENDER [address] [place] [address] [facility] [address] [place] [address] Status Reason Specialty Diagnoses / Procedures Referre d By Contact Referred To Contact Closed Radiology Diagnoses Tear of right rotator cuff, unspecified tear extent, unspecified whether traumatic Procedures MR Shoulder Right Without Contrast Hayde Bedoyae Maegan, TUBE BENDER [address] [id number] Additional Source Comments (unrecognized sect ion and content) No Status Records FoundNo Status Records FoundNo Status Records FoundNo Status Records FoundNo Status Records FoundNo Status Records FoundNo Status Records FoundNo Status Records FoundNo Status Records Found INFORMATION SOURCE (unrecogn ized section and content) DATE CREATED AUTHOR AUTHOR'S ORGANIZ ATION 02/27/2018 [facility] DATE CREATED AUTHOR AUTHOR'S ORGANIZ ATION 03/15/2018 [facility] DATE CREATED AUTHOR AUTHOR'S ORGANIZ ATION 10/29/2018 [facility] DATE CREATED AUTHOR AUTHOR'S ORGANIZ ATION 05/02/2020 [facility] DATE CREATED AUTHOR AUTHOR'S ORGANIZ ATION 05/12/2022 [facility] DATE CREATED AUTHOR AUTHOR'S ORGANIZ ATION 01/24/2023 [facility] DATE CREATED AUTHOR AUTHOR'S ORGANIZ ATION 09/01/2023 [facility] DATE CREATED AUTHOR AUTHOR'S ORGANIZ ATION 09/01/2023 [facility] Reason for Visit (unrecogniz ed section and content) Reason Comments Consult ventral hernia Status Reason Specialty Diagnoses / Procedures Referred By Contact Referred To Contact Closed General Surgery Diagnoses RUQ pain History of ventral hernia repair Jose Miguel Pappas, DO [address] [place] [address] Bruno Copeland MD [address] [place] [address] [facility] [address] [place] [address] Reason Comments Shoulder Pain Reason Comments Pain Reason Comments Results MRI results Reason Comments Physical Therapy Status Reason Specialty Diagnoses / Procedures Referred By Contact Referred To Contact Authorized Rehabilitation Diagnoses Tear of right rotator cuff, unspecified tear extent, unspecified whether traumatic Coreen Bedoya CNP [id number] [place] [id number] Status Reason Specialty Diagnoses / Procedures Re ferred By Contact Referred To Contact Diagnoses Tear of right rotator cuff, unspecified tear extent, unspecified whether traumatic Separation of right acromioclavicular joint, initial encounter Tear of right rotator cuff, unspecified tear extent, unspecified whether traumatic [M75.101] Separation of right acromioclavicular joint, initial encounter [S43.101A] Procedures DE SHLDR ARTHROSCOP,SURG,W/ROTAT CUFF REPR Sofía Churchill MD [address] [place] [address] Reason Comments Suture / Staple Removal Wound Check Reason Comments Follow-up Status Reason Specialty Diagnoses / Procedures Referred By Contact Referred To Contact Authorized Rehabilitation Diagnoses Tear of right rotator cuff, unspecified tear extent, unspecified whether traumatic Coreen Bedoya CNP [phone] [place] [address] Status Reason Specialty Diagnoses / Procedures Referre d By Contact Referred To Contact Closed Radiology Diagnoses Tear of right rotator cuff, unspecified tear extent, unspecified whether traumatic Procedures MR Shoulder Right Without Contrast Coreen Bedoya CNP [id number] Ana Ann CNP - 01/26/2020 3:17 PM EDTErika Avalos RN - 01/26/2020 1:07 PM EDT ED Notes (unrecognized secti on and content) [facility] ED MARTHA Note: NAME: John Mayers 54 y.o. CSN: [id number] PCP: Jose Miguel Pappas DO History: Chief Complaint: Shoulder Pain HPI: The history was obtained from the patient. is a 54 y.o. male who presents with a chief complaint of Shoulder Pain. Patient reports he heard a pop when he was going up a ladder today at work and had instant right shoulder pain. Patient has history of partial right shoulder separation that he never had repaired. He denies any other trauma to the shoulder. Patient denies any recent illness including fever, chills, shortness of breath, chest pain, nausea vomiting diarrhea, diaphoresis, cough. He has not treated. PMHx: Past Medical History: Diagnosis Date Cataracts, bilateral ED (erectile dysfunction)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
[2023-11-01 07:55] LABS: ALB/GLOB Ratio 0.9 RATIO (0.9-2.4); AST(SGOT) 24 U/L (15-37); Alanine Aminotransfer ALT/SGPT 25 U/L (16-61); Albumin, Serum 3.6 g/dL (3.2-5.0); Alkaline Phosphatase 68 U/L (45-117); Anion Gap 1 (5-15); BUN 18 mg/dL (7-18); BUN/Creat Ratio 19.9 RATIO (10-20); Calcium,Total 9.4 mg/dL (8.5-10.1); Chloride 110 mmol/L (98-107); EST Glomerular Filtration Rate 91 mL/min (>60); Est Glom Filt Rate - Afr Amer 111 mL/min (>60); Globulin 4.2 g/dL (2.2-4.2); Glucose 103 mg/dL (74-106); Potassium 4.3 mmol/L (3.5-5.1); Protein, Total 7.8 g/dL (6.4-8.2); Sodium Level 139 mmol/L (136-145)
[2023-11-01 08:12] LABS: Vitamin D,25 Hydroxy 32.8 ng/mL
== END | disposition home or self-care (01) ==
LOC: CT 06:38
PROVIDERS: Internal Medicine Endocrinology, Diabetes & Metabolism; Referring Provider Internal Medicine Critical Care Medicine; Visit Provider Internal Medicine Critical Care Medicine
DX: R91.1 Solitary pulmonary nodule (principal); E55.9 Vitamin D deficiency, unspecified; M81.0 Age-related osteoporosis without current pathological fracture
CPT/HCPCS: 36415; 71250; 80053; 82306

== ENCOUNTER → 2024-01-22 | Outpatient (CLI) | payer MEDICARE, MEDICAID, SELFPAY | END | disposition home or self-care (01) | PROVIDERS: Referring Provider Internal Medicine Critical Care Medicine; Visit Provider Internal Medicine Critical Care Medicine | DX: J44.9 Chronic obstructive pulmonary disease, unspecified (principal) | CPT/HCPCS: 94060; 94726; 94729 ==